=== PATIENT | female | born 1980 | race Caucasian/White ===

== ENCOUNTER → 2017-08-08 18:30 | Emergency (ER) | payer MEDICAID, OTHER ==
[~2017-08-08 18:30] MED LIST: Ibuprofen TAB* 400 MG PO ONE; traMADol TAB* 50 MG PO ONE
--- NOTE | 2017-08-08 19:41 | RAD ---
INDICATION: Chest pain COMPARISON: None TECHNIQUE: An AP portable view obtained at 1931 hours is submitted. FINDINGS: Bones/Soft Tissues: There are no acute bony findings. Cardiomediastinal: The cardiomediastinal silhouette is normal. Lungs: There are no infiltrates. Pleura: There are no pleural effusions. Other: None IMPRESSION: NO ACTIVE DISEASE.
[2017-08-08 20:04] LABS: Hematocrit 44 % (35-47); Hemoglobin 15.2 g/dl (12.0-16.0); Mean Corpuscular HGB Conc 34 g/dl (31-36); Mean Corpuscular Hemoglobin 30 pg (27-31); Mean Corpuscular Volume 87 fL (80-97); Mean Platelet Volume 8 um3 (7.4-10.4); Red Blood Count 5.06 10^6/ul (4.0-5.4); Red Cell Distribution Width 13 % (10.5-15)
[2017-08-08 20:23] LABS: Troponin I 0.01 ng/mL (<0.04)
[2017-08-08 20:32] LABS: ALT 21 U/L (7-52); AST 22 U/L (13-39); Albumin 4.3 g/dL (3.2-5.2); Alkaline Phosphatase 66 U/L (34-104); Anion Gap 9 mmol/L (2-11); BUN/Creatinine Ratio 19.4 (8-20); Blood Urea Nitrogen 14 mg/dL (6-24); CO2 Carbon Dioxide 24 mmol/L (22-32); Calcium 9.3 mg/dL (8.6-10.3); Chloride 103 mmol/L (101-111); EGFR African American 116.6 (>60); EGFR Non-African American 90.7 (>60); Globulin 3.4 g/dL (2-4); Glucose 82 mg/dL (70-100); Potassium 3.7 mmol/L (3.5-5.0); Sodium 136 mmol/L (133-145); Total Protein 7.7 g/dL (6.4-8.9)
[2017-08-08 20:51] LABS: T4 6.77 mcg/mL (6.09-12.23)
[2017-08-08 20:55] LABS: TSH (Thyroid Stimulating Horm) 3.29 mcIU/mL (0.34-5.60)
[2017-08-08 21:37] LABS: Urine Bacteria Absent (Absent); Urine Bilirubin Negative (Negative); Urine Glucose Negative (Negative); Urine Nitrite Negative (Negative)
[2017-08-09 00:52] VITALS: BP 132/82
--- NOTE | 2017-08-09 05:24 | ED ---
Tyron Galo Gabriel, scribed for Marcin Brenner on 08/08/17 at 1927 . HPI Chest Pain - HPI Summary HPI Summary: This patient is a 37 year old F presenting to [facility] with a chief complaint of CP since 10 days ago. The patient rates the pain 6/10 in severity and describes it as constant and radiating from the left side of her chest up into her neck. Symptoms aggravated by inspiration and movement. Patient reports nausea, nonproductive cough, and dizziness. Patient denies LE pain. - History of Current Complaint Chief Complaint: EDChestPainROMI Time Seen by Provider: 08/08/17 19:21 Hx Obtained From: Patient Hx Last Menstrual Period: 06/22/15 Onset/Duration: Started Days Ago - 10, Still Present Timing: Constant Pain Intensity: 6 Pain Scale Used: 0-10 Numeric Chest Pain Radiates: Yes Chest Pain Radiates To:: Neck Character: Other: - inspiration and movement Alleviating Factor(s): Other: Associated Signs and Symptoms: Positive: Negative - LE pain, Dizziness, Nonproductive Cough, Other: - nausea - Allergy/Home Medications Allergies/Adverse Reactions: Allergies Allergy/AdvReac Type Severity Reaction Status Date / Time Fluconazole [From Diflucan] Allergy Intermediate skin Verified 06/25/15 16:06 Penicillins Allergy Intermediate Hives Verified 06/25/15 16:06 PMH/Surg Hx/FS Hx/Imm Hx Previously Healthy: No Endocrine/Hematology History: Denies: Hx Diabetes Cardiovascular History: Reports: Hx Hypercholesterolemia Denies: Hx Hypertension History: Reports: Other Problems/Disorders - Poly cystic ovaries - Cancer History Hx Chemotherapy: No Hx Radiation Therapy: No - Surgical History Surgery Procedure, Year, and Place: Right ovarian cyst removed. Right carpal tunnel Infectious Disease History: No Infectious Disease History: Denies: Hx Clostridium Difficile, Traveled Outside the [place] in Last 30 Days - Family History Known Family History: Positive: Diabetes - brother type II, Other - breast cancer Negative: Cardiac Disease, Hypertension - Social History Alcohol Use: Weekly Alcohol Amount: 2-3 of wine Substance Use Type: Reports: Marijuana Smoking Status (MU): Current Some Day Smoker Type: Cigarettes Amount Used/How Often: 1 pack per week Length of Time of Smoking/Using Tobacco: 22 Have You Smoked in the Last Year: Yes Review of Systems Positive: Chest Pain Positive: Cough Positive: Nausea Musculoskeletal: Negative - LE pain Neurological: Negative - dizziness All Other Systems Reviewed And Are Negative: Yes Physical Exam - Summary Physical Exam Summary: Appearance: Well appearing, no pain distress Skin: warm, dry, reflects adequate perfusion Head/face: normal Eyes: EOMI, YOLA ENT: normal Neck: supple, non-tender Respiratory: CTA, breath sounds present Cardiovascular: RRR, pulses symmetrical Abdomen: non-tender, soft Bowel: present Musculoskeletal: strength/ROM intact, Patient has tenderness of her chest left. Neuro: normal, sensory motor intact, A&Ox3 Triage Information Reviewed: Yes Vital Signs On Initial Exam: Initial Vitals Temp Pulse Resp BP Pulse Ox 98.2 F 86 18 147/93 100 08/08/17 18:33 08/08/17 18:33 08/08/17 18:33 08/08/17 18:33 08/08/17 18:33 Vital Signs Reviewed: Yes Diagnostics - Vital Signs Vital Signs Temp Pulse Resp BP Pulse Ox 08/08/17 18:33 98.2 F 86 18 147/93 100 - Laboratory Lab Results: Lab Results 08/08/17 08/08/17 08/08/17 Range/Units 19:53 19:53 19:53 WBC 10.0 (3.5-10.8) 10^3/ul RBC 5.06 (4.0-5.4) 10^6/ul Hgb 15.2 (12.0-16.0) g/dl Hct 44 (35-47) % MCV 87 (80-97) fL MCH 30 (27-31) pg MCHC 34 (31-36) g/dl RDW 13 (10.5-15) % Plt Count 302 (150-450) 10^3/ul MPV 8 (7.4-10.4) um3 Neut % (Auto) 71.2 (38-83) % Lymph % (Auto) 20.4 L (25-47) % [place] % (Auto) 6.1 (1-9) % Eos % (Auto) 1.7 (0-6) % Baso % (Auto) 0.6 (0-2) % Absolute Neuts (auto) 7.1 (1.5-7.7) 10^3/ul Absolute Lymphs (auto) 2.0 (1.0-4.8) 10^3/ul Absolute Monos (auto) 0.6 (0-0.8) 10^3/ul Absolute Eos (auto) 0.2 (0-0.6) 10^3/ul Absolute Basos (auto) 0.1 (0-0.2) 10^3/ul Absolute Nucleated RBC 0.01 10^3/ul Nucleated RBC % 0.1 INR (Anticoag Therapy) 0.79 L (0.89-1.11) D-Dimer, Quantitative < 200 (Less Than 230) ng/mL Sodium 136 (133-145) mmol/L Potassium 3.7 (3.5-5.0) mmol/L Chloride 103 (101-111) mmol/L Carbon Dioxide 24 (22-32) mmol/L Anion Gap 9 (2-11) mmol/L BUN 14 (6-24) mg/dL Creatinine 0.72 (0.51-0.95) mg/dL Est GFR ( Amer) 116.6 (>60) Est GFR (Non-Af Amer) 90.7 (>60) BUN/Creatinine Ratio 19.4 (8-20) Glucose 82 (70-100) mg/dL Lactic Acid (0.5-2.0) mmol/L Calcium 9.3 (8.6-10.3) mg/dL Magnesium 2.0 (1.9-2.7) mg/dL Total Bilirubin 0.30 (0.2-1.0) mg/dL AST 22 (13-39) U/L ALT 21 (7-52) U/L Alkaline Phosphatase 66 (34-104) U/L CK-MB (CK-2) 1.5 (0.6-6.3) ng/mL Troponin I 0.01 (<0.04) ng/mL Total Protein 7.7 (6.4-8.9) g/dL Albumin 4.3 (3.2-5.2) g/dL Globulin 3.4 (2-4) g/dL Albumin/Globulin Ratio 1.3 (1-3) TSH 3.29 (0.34-5.60) mcIU/mL Thyroxine (T4) 6.77 (6.09-12.23) mcg/mL Beta HCG, Quant < 0.60 mIU/mL Urine Color Urine Appearance Urine pH (5-9) Ur Specific [place] (1.010-1.030) Urine Protein (Negative) Urine Ketones (Negative) Urine Blood (Negative) Urine Nitrate (Negative) Urine Bilirubin (Negative) Urine Urobilinogen (Negative) Ur Leukocyte Esterase (Negative) Urine WBC (Auto) (Absent) Urine RBC (Auto) (Absent) Ur Squamous Epith Cells (Absent) Urine Bacteria (Absent) Urine Glucose (Negative) 08/08/17 08/08/17 08/08/17 Range/Units 19:53 21:15 22:29 WBC (3.5-10.8) 10^3/ul RBC (4.0-5.4) 10^6/ul Hgb (12.0-16.0) g/dl Hct (35-47) % MCV (80-97) fL MCH (27-31) pg MCHC (31-36) g/dl RDW (10.5-15) % Plt Count (150-450) 10^3/ul MPV (7.4-10.4) um3 Neut % (Auto) (38-83) % Lymph % (Auto) (25-47) % [place] % (Auto) (1-9) % Eos % (Auto) (0-6) % Baso % (Auto) (0-2) % Absolute Neuts (auto) (1.5-7.7) 10^3/ul Absolute Lymphs (auto) (1.0-4.8) 10^3/ul Absolute Monos (auto) (0-0.8) 10^3/ul Absolute Eos (auto) (0-0.6) 10^3/ul Absolute Basos (auto) (0-0.2) 10^3/ul Absolute Nucleated RBC 10^3/ul Nucleated RBC % INR (Anticoag Therapy) (0.89-1.11) D-Dimer, Quantitative (Less Than 230) ng/mL Sodium (133-145) mmol/L Potassium (3.5-5.0) mmol/L Chloride (101-111) mmol/L Carbon Dioxide (22-32) mmol/L Anion Gap (2-11) mmol/L BUN (6-24) mg/dL Creatinine (0.51-0.95) mg/dL Est GFR ( Amer) (>60) Est GFR (Non-Af Amer) (>60) BUN/Creatinine Ratio (8-20) Glucose (70-100) mg/dL Lactic Acid 2.0 (0.5-2.0) mmol/L Calcium (8.6-10.3) mg/dL Magnesium (1.9-2.7) mg/dL Total Bilirubin (0.2-1.0) mg/dL AST (13-39) U/L ALT (7-52) U/L Alkaline Phosphatase (34-104) U/L CK-MB (CK-2) (0.6-6.3) ng/mL Troponin I 0.01 (<0.04) ng/mL Total Protein (6.4-8.9) g/dL Albumin (3.2-5.2) g/dL Globulin (2-4) g/dL Albumin/Globulin Ratio (1-3) TSH (0.34-5.60) mcIU/mL Thyroxine (T4) (6.09-12.23) mcg/mL Beta HCG, Quant mIU/mL Urine Color Yellow Urine Appearance Clear Urine pH 5.0 (5-9) Ur Specific [place] 1.018 (1.010-1.030) Urine Protein Negative (Negative) Urine Ketones Negative (Negative) Urine Blood 2+ H (Negative) Urine Nitrate Negative (Negative) Urine Bilirubin Negative (Negative) Urine Urobilinogen Negative (Negative) Ur Leukocyte Esterase Negative (Negative) Urine WBC (Auto) Trace(0-5/hpf) (Absent) Urine RBC (Auto) 1+(3-5/hpf) H (Absent) Ur Squamous Epith Cells Present H (Absent) Urine Bacteria Absent (Absent) Urine Glucose Negative (Negative) Result Diagrams: 08/08/17 19:53 08/08/17 19:53 Lab Statement: Any lab studies that have been ordered have been reviewed, and results considered in the medical decision making process. - Radiology CXR Radiology Interpretation Completed By: Radiologist - NO ACTIVE DISEASE. ED physician has reviewed this radiology report and agrees. - EKG 18:41 Cardiac Rate: NL EKG Rhythm: Sinus Rhythm - NSR at 81 BPM EKG Interpretation: No acute changes Re-Evaluation - Re-Evaluation First Eval Re-Evaluation Time: 21:35 Change: Unchanged - Dicussed patients labs with her and recommended a second round of toponin. Chest Pain Course/Dx - Course Assessment/Plan: This patient is a 37 year old F presenting to [facility] with a chief complaint of CP since 10 days ago. An EKG reveals NSR at 81 BPM CXR reveals, per radiologist, NO ACTIVE DISEASE. Blood and urine were collected with no significant abnormalities. In the ED course the patient was given Tramadol HCL and Ibuprofen. Patient will be discharged with prescription for Tramadol and Ibuprofen and diagnoses of atypical chest pain and costochondritis. Patient came in with chest pain and tenderness over her chest it is most probable due to a musculoskeletal problem. Patient will follow up from Dr. Singh (PCP) in 3 days. The patient is agreeable with this plan. - Chest Pain Differential Diagnosis/HQI/PQRI: Acute MT, ACS, Chest Wall, Lower Respiratory Infection, Pulmonary Embolism - Diagnoses Provider Diagnoses: Atypical chest pain, Costochondritis Discharge - Discharge Plan Condition: Stable Disposition: HOME Prescriptions: Ibuprofen TAB* [Motrin TAB* 600 MG] 600 mg PO Q8H PRN #20 tab MDD 3 PRN Reason: Pain Tramadol HCl [Ultram] 50 mg PO TID #9 tab MDD 3 Patient Education Materials: Ibuprofen (By mouth), Tramadol (By mouth), Chest Pain (ED), Costochondritis (ED) Referrals: Daniella Camargo MD [Primary Care Provider] - Additional Instructions: RETURN TO THE EMERGENCY DEPARTMENT FOR CHANGING OR WORSENING SYMPTOMS. The documentation as recorded by the Tyron alatorre Gabriel accurately reflects the service I personally performed and the decisions made by , Marcin Brenner.
== END | disposition home or self-care (01) ==
LOC: ED 18:30
DX: R07.89 Other chest pain (principal); M94.0 Chondrocostal junction syndrome [Tietze]; R42 Dizziness and giddiness; R05 Cough; R11.0 Nausea; Z72.0 Tobacco use
CPT/HCPCS: 36415; 71010; 80053; 81003; 81015; 82553; 83605; 83735; 84436; 84443; 84484; 84702; 85025; 85379; 85610; 93005; 99282; A9270-GY

== ENCOUNTER 2018-07-26 10:04 | Inpatient (IN) | payer OTHER ==
[~2018-07-26 10:04] MED LIST changes: +Buffered Lidocaine 0.9% SYRIN* 5 ML/SYR SYRINGE INTRADERM ONE; +Dexamethasone TAB* 4 MG PO ONE; +DiMENhydriNATE IV* 50 MG/ML VIAL IV PUSH PRN; +Famotidine IV* 10 MG/ML 2 ML (20 mg) IV ONE; -Ibuprofen TAB* 400 MG PO ONE; +Morphine VIAL* 4 MG/ML VIAL (1 ml vial) IV PRN; +Naloxone* 0.4 MG/ML 1 ML VIAL IV PRN; +Ondansetron TAB* 4 MG PO ONE; +PROCHLORPERAZINE INJ 5 MG/ML 2 ML VIAL IV PRN; +Scopolamine 1.5 mg* PATCH TRANSDERM ONE; -traMADol TAB* 50 MG PO ONE
[2018-07-26] MEDS ORDERED: Clindamycin 900 MG/D5W BAG(*) 900 MG/50 ML BAG IVPB ONE (10:24)
[2018-07-26] MEDS ORDERED: Dexamethasone TAB* 4 MG ONE (10:24)
[2018-07-26] MEDS ORDERED: Famotidine IV* 10 MG/ML 2 ML (20 mg) ONE (10:24)
[2018-07-26] MEDS ORDERED: Ondansetron ODT TAB* 4 MG ONE (10:24)
[2018-07-26] MEDS ORDERED: Scopolamine 1.5 mg* PATCH ONE (10:24)
[2018-07-26] MEDS ORDERED: Heparin VIAL(*) 5000 UNITS/ML VIAL (FIVE THOUSAND) ONE (10:25)
[2018-07-26] MEDS ORDERED: Ciprofloxacin 400MG IVPREMIX(* 400 MG/200 ML BAG ONE (10:25)
[2018-07-26] MEDS ORDERED: fentaNYL* 50 MCG/ML 5 ML VIAL (250 MCG VIAL) ONE (11:17)
[2018-07-26] MEDS ORDERED: Midazolam* 1 MG/ML 5 ML VIAL (5 MG) ONE (11:17)
[2018-07-26] MEDS ORDERED: Atracurium* 10 MG/ML 10 ML VIAL ONE (11:17)
[2018-07-26] MEDS ORDERED: KETAMINE HCL* 50 MG/ML 10 ML VIAL ONE (11:17)
[2018-07-26] MEDS ORDERED: Morphine VIAL* 10 MG/ML 1 ML VIAL ONE (13:35)
[2018-07-26] MEDS ORDERED: PROCHLORPERAZINE INJ 5 MG/ML 2 ML VIAL ONE (13:36)
[2018-07-26] MEDS ORDERED: Propofol* 10 MG/ML 20 ML BTL IV PUSH ONE (13:37)
[2018-07-26] MEDS ORDERED: EPHEDrine (Pressors)* 50 MG/ML VIAL ONE (13:37)
[2018-07-26] MEDS ORDERED: Glycopyrrolate IV* 0.2 MG/ML 1 ML VIAL ONE (13:37)
[2018-07-26] MEDS ORDERED: Labetalol IV* 5 MG/ML 20 ML VIAL ONE (14:07)
[2018-07-26] MEDS ORDERED: Acetaminophen ADULT LIQ* 650 MG/20.3 ML UDC PO PRN (14:24)
[2018-07-26] MEDS ORDERED: diPHENhydraMINE IV* 50 MG/ML 1 ml VIAL (BENADRYL) SLOW PUSH PRN (14:24)
--- NOTE | 2018-07-26 14:24 | OP ---
Operative Report - Blank - Operative Report Date of Operation: 07/26/18 Note: Brief Operative Note Preop Dx: Morbid Obesity Postop Dx: Same Procedure: Laparoscopic Sleeve Gastrectomy Anesthesia: GET Surgeon: Dr. Tristan Christianson Head Sugar Reprocess Operator: Kris Garcia Fluids: 2.0L EBL: 25 ml Specimen: Portion of stomach Drains: None Findings: dictated
[2018-07-26] MEDS ORDERED: fentaNYL* 50 MCG/ML 2 ML VIAL (100 MCG VIAL) ONE (14:41)
[2018-07-26] MEDS: fentaNYL* 50 MCG/ML 2 ML VIAL (100 MCG VIAL) IV PRN ×3 (14:42→15:56)
[2018-07-26] MEDS ORDERED: DiMENhydriNATE IV* 50 MG/ML VIAL ONE (15:26)
[2018-07-26] MEDS ORDERED: Morphine VIAL* 4 MG/ML VIAL (1 ml vial) IV ONE (15:58)
[2018-07-26] MEDS ORDERED: HYDROmorphone INJ1* 1 MG/ML SYRINGE ONE (16:59)
[2018-07-26] MEDS ORDERED: Ondansetron INJ* 2 MG/ML VIAL ONE (17:00)
[2018-07-26] MEDS: Ketorolac INJ* 30 MG/ML 1 ML VIAL IV PRN (20:32)
[2018-07-26] MEDS: Famotidine IV* 10 MG/ML 2 ML (20 mg) IV SLOW PU SCH (20:32)
[2018-07-26] MEDS: Ondansetron INJ* 2 MG/ML VIAL IV PRN (23:54)
[2018-07-26] MEDS: HYDROmorphone INJ1* 1 MG/ML SYRINGE IV PRN (23:54)
[2018-07-27] MEDS: Ketorolac INJ* 30 MG/ML 1 ML VIAL IV PRN ×2 (03:59→20:21)
[2018-07-27] MEDS: HYDROmorphone INJ1* 1 MG/ML SYRINGE IV PRN ×3 (03:59→13:02)
[2018-07-27] MEDS: Heparin VIAL(*) 5000 UNITS/ML VIAL (FIVE THOUSAND) SUBCUT SCH ×3 (05:57→22:39)
[2018-07-27] MEDS: Ondansetron INJ* 2 MG/ML VIAL IV PRN ×3 (05:57→20:14)
[2018-07-27] MEDS: Famotidine IV* 10 MG/ML 2 ML (20 mg) IV SLOW PU SCH ×2 (08:14→20:21)
--- NOTE | 2018-07-27 09:02 | PN ---
Progress Note - Progress Note Date of Service: 07/27/18 SOAP: Subjective: Pt seen and examined. abdo pain. some nausea Objective: Temp Pulse Resp BP Pulse Ox 98.4 F 59 14 115/67 98 07/27/18 07:38 07/27/18 07:38 07/27/18 07:38 07/27/18 07:38 07/27/18 07:38 Intake & Output 07/26/18 07/27/18 07/27/18 22:59 06:59 14:59 Intake Total 0 1965 Output Total 1100 2550 300 Balance -1100 -585 -300 a and ox3, nad lungs clear abdo: soft/ obese/ incisional tenderness dressing intact no calf tenderness UGI images reviewed Assessment: POD1 sleeve Plan: bariatric diet pain control d/c planning
[2018-07-27] MEDS: HYDROcodone/ACET. 7.5/325 LIQ* 15 ML UDC PO PRN ×3 (09:11→22:37)
--- NOTE | 2018-07-27 09:25 | OP ---
CC: Daniella Camargo MD; [facility].* DATE OF OPERATION: 07/26/18 - ROOM #351 DATE OF : 78. SURGEON: Tristan Christianson MD. DRAG OUT WORKER: CODY Garcia. ANESTHESIOLOGIST: Dr. Valverde. ANESTHESIA: General anesthesia. PRE-OP DIAGNOSIS: Clinically severe obesity. POST-OP DIAGNOSIS: Clinically severe obesity. OPERATIVE PROCEDURE: Laparoscopic sleeve gastrectomy. ESTIMATED BLOOD LOSS: Minimal. FLUIDS: Minimal crystalloid fluid given. SPECIMEN: Portion of stomach. DRAINS: None. DESCRIPTION OF PROCEDURE: The patient was identified in the preoperative area. Consent was signed. She was marked, brought to the operating room, placed on the operating table in supine position. Preoperative antibiotics were given. Sequential devices were placed on bilateral lower extremities. General anesthesia was induced. The patient's abdomen was prepped and draped in a standard surgical fashion. A time-out was performed. Folds of the umbilicus were elevated anteriorly and a Veress needle was inserted into the abdominal cavity, which was then allowed to insufflate to a pressure of 15 mmHg. The patient tolerated the insufflation well. [place] between the xiphoid and the umbilicus, a 12-mm trocar was inserted just left of midline. Laparoscope was inserted through this and there was no evidence of injury from the trocar insertion or from the Veress needle. Additional trocars were then placed in the following position: Two 5 mm in the left upper quadrant and a 12 mm in the right upper quadrant. Review of the abdomen showed enlarged liver. This was retracted anteriorly and to the right with a Agatha retractor that was inserted through a subxiphoid incision. Next, the gastroesophageal fat pad was dissected off the anterior aspect of the stomach and extended towards the angle of His. We freed the stomach off of the crura on the left and there was no identifiable hiatal hernia. Next, we made a retrogastric tunnel at approximately 6 cm proximal to the pylorus on the greater curvature and took the vasculature right up to our previously dissected area at the angle of His. Posterior attachments were similarly taken until the stomach could be entirely rotated on its axis. Next, the sleeve stomach was created using 60 mm purple JOS stapling devices with reinforcement strips in the standard fashion. Five staplers were used in all. We did this over a 40-Arabic bougie. The bougie was removed and hemostasis was certainly achieved at the staple line. The staple line did not show any cord screwing, twisting. It appeared completely intact. Next, the resected portion of the stomach was then placed in an endoscopic retrieval bag. We placed an Endoloop at the distal aspect of it to help with removal. At this point, we noted that there was bleeding along the liver on the inferior aspect of the left lateral lobe. It appeared that an instrument had scarped along the side of it. There was no puncture and the bleeding promptly stopped. We did suction his blood out. It did not persist. However, I utilized a portion of Surgicel and gauze to hold pressure. Next, the stomach was removed through the right upper quadrant port site after dilating this. It was removed and passed off as specimen. We then reinserted the port and reviewed the abdomen that was with bleeding. Stomach sleeve appeared intact. The area of the liver that was concerned showed no evidence of bleeding and we left the Surgicel intact and removed the gauze. Next, the Agatha retractor was removed. We had shifted this to ensure that this was not helping stop the bleeding at this small area of the liver and it was only loosely placed on the liver, but now it had been removed and again no bleeding was encountered. Next, the right upper quadrant port site was closed with an Endo Close device using a 0-Vicryl suture. We then allowed the abdomen to collapse. Trocars were removed under direct vision and all skin incisions were reapproximated with 4-0 Monocryl subcuticular sutures followed by Steri-Strips and sterile dressing. The patient tolerated the procedure well and was woken up in the OR, and transferred to the PACU in stable condition. [id number]/[facility] #: [id number] [facility] SYSTEMDonna
--- NOTE | 2018-07-27 12:09 | PN ---
Progress Note - Progress Note Date of Service: 07/27/18 SOAP: Subjective: This is 38-y-o female who underwent Laparoscopic Sleeve Gastrectomy on 07/26/2018. Pt notes the pain was 8/10 in severity last night and 5-6/10 today. She states sitting and shifting make her pain worse. She is tolerating clear liquids well. Denies chest pain, fever, chills SOB, nausea & vomitting and calf tenderness. Denies passing of flatus and bowel movement. Objective: [ Temp Pulse Resp BP Pulse Ox 98.1 F 53 12 135/76 100 07/27/18 11:33 07/27/18 11:33 07/27/18 11:33 07/27/18 11:33 07/27/18 11:33 Intake & Output 07/26/18 07/27/18 07/27/18 22:59 06:59 14:59 Intake Total 0 1965 Output Total 1100 2550 600 Balance -1100 -585 -600 Intake: IV Fluids 1965 LR 1965 Oral 0 0 Output: Urine 1100 2550 600 Other: Estimated Void Large # Bowel Movements 0 # Voids 1 General: Well appearing, alert & oriented, no signs of acute distress. Lungs: CTA, no wheezes, rohchi, or rales CV: Regular rate and rhythm, normal S1, S2, no S3, S4. No murmurs, rubs or gallops noted Abdomen: Soft, non-distended, tenderness in around the lap incision sites, dressing intact and dry without discharge. Positive bowel sounds Assessment: POD #1 Laparoscopic Sleeve Gastrectomy Plan: Doing well, encouraged incentive spirometry and ambulation Bariatic diet Pain control Discharge planning as per Dr. Christianson note.
[2018-07-27] MEDS: D5W 1/2 NS KCl 20 Meq 1000 ML* 1,000 ML IV SCH ×2 (14:31→22:37)
[2018-07-27] MEDS ORDERED: Metoclopramide IV* 5 MG/ML 2 ML VIAL ONE (16:36)
[2018-07-28] MEDS: D5W 1/2 NS KCl 20 Meq 1000 ML* 1,000 ML IV SCH (06:25)
[2018-07-28] MEDS: Heparin VIAL(*) 5000 UNITS/ML VIAL (FIVE THOUSAND) SUBCUT SCH ×2 (06:33→14:20)
[2018-07-28] MEDS: HYDROcodone/ACET. 7.5/325 LIQ* 15 ML UDC PO PRN ×3 (06:34→18:01)
[2018-07-28] MEDS: Ondansetron INJ* 2 MG/ML VIAL IV PRN (06:35)
[2018-07-28] MEDS: Famotidine IV* 10 MG/ML 2 ML (20 mg) IV SLOW PU SCH (08:54)
[2018-07-28] MEDS: Ketorolac INJ* 30 MG/ML 1 ML VIAL IV PRN (14:35)
[2018-07-28 17:38] VITALS: BP 120/65
[2018-07-29] MEDS ORDERED: Scopolamine PATCH Remove* 1 NOTE MISC PATCH OFF ONE (06:00)
--- NOTE | 2018-07-29 10:35 | DS ---
CC: Dr. Daniella Camargo; [facility]. DISCHARGE SUMMARY: DATE OF ADMISSION: DATE OF DISCHARGE: 07/28/18 HISTORY: Ms. Acosta is 38-year-old female with a clinically severe obesity, who was admitted on same day of surgery and underwent a laparoscopic sleeve gastrectomy. Please see operative report for detai ls. In the postoperative period, she was transferred to the PACU and onto the short stay surgical unit. Postoperative day #1, the patient underwent an upper GI study, and was started on liquid diet. She t olerated very minimal amount fluids and was maintained on IV fluids as well as. She was given pain m edications and was observed in the overnight. By postoperative day #2, she showed some improvement, continued to have some upper abdominal pain as well as reflux type pain. She was maintained on a H2 tracey while hospitalized with the plan of discharging her on a proton pump inhibitor. On day of discharge, physical exam was performed, she was afebrile. Vital signs were stable. Lungs clear to auscultation bilaterally. Abdomen soft, obese, positive incisional tenderness without rebou nd. Dressings removed. No erythema. No ecchymosis. Steri-Strips in place. Extremities within norm al limits. PLAN: Postoperative day #2 sleeve gastrectomy. Plan to discharge home. She has followup appointmen t in our office. She will resume her preoperative medications and we will add omeprazole 40 mg daily to her regimen. [id number]/[facility] #: [id number]
== END 2018-07-28 18:00 | disposition home or self-care (01) | DRG 403 ==
LOC: AA 10:04 → SSU 16:49
PROVIDERS: ADMIT Surgery; ATTEND Surgery
PROC: 0DB64Z3 Excision of Stomach, Percutaneous Endoscopic Approach, Vertical (ICD-10-PCS; principal; 2018-07-26 11:15)
DX: E66.01 Morbid (severe) obesity due to excess calories (principal); E73.9 Lactose intolerance, unspecified; F41.9 Anxiety disorder, unspecified; F32.9 Major depressive disorder, single episode, unspecified; F17.210 Nicotine dependence, cigarettes, uncomplicated; G47.33 Obstructive sleep apnea (adult) (pediatric); E78.5 Hyperlipidemia, unspecified; E28.2 Polycystic ovarian syndrome; N80.9 Endometriosis, unspecified; Z82.49 Family history of ischemic heart disease and other diseases of the circulatory system; Z68.38 Body mass index [BMI] 38.0-38.9, adult; Z88.0 Allergy status to penicillin; Z88.8 Allergy status to other drugs, medicaments and biological substances; Z83.3 Family history of diabetes mellitus; Z81.8 Family history of other mental and behavioral disorders; Z80.9 Family history of malignant neoplasm, unspecified
CPT/HCPCS: 74246; 81025; 88307; A9270-GY; J0744; J0780; J1170; J1240; J1644; J1885; J2250; J2270; J2405; J2704; J2765; J3010; J8540

== ENCOUNTER 2018-09-18 11:00 | Emergency (ER) | payer BC ==
--- NOTE | 2018-09-18 11:10 | UC ---
Lower Extremity/Ankle HPI - HPI Summary HPI Summary: 38 yo female presents with RIGHT foot pain. She tells me that last night she was carrying a laptop and lost of her footing on the stairs. Fell onto her buttocks and twisted her right toes on the step. Since that time has had pain in her right foot around 1st MTP. She is able to ambulate without assistance, but does have a significant limp. Denies numbness or tingling. Did not hit her head or have LOC. Denies pain elsewhere on body. - History of Current Complaint Stated Complaint: R FOOT INJURY Time Seen by Provider: 09/18/18 11:10 Hx Obtained From: Patient Hx Last Menstrual Period: 06/22/15 Onset/Duration: Sudden Onset Severity Initially: Moderate Severity Currently: Severe Pain Intensity: 10 Pain Scale Used: 0-10 Numeric Aggravating Factor(s): Standing, Ambulation Alleviating Factor(s): Rest Able to Bear Weight: Yes - Allergies/Home Medications Allergies/Adverse Reactions: Allergies Allergy/AdvReac Type Severity Reaction Status Date / Time fluconazole Allergy Severe Blisters Verified 09/18/18 11:06 lactose Allergy Severe GI Upset Verified 09/18/18 11:06 Penicillins Allergy Severe Hives Verified 09/18/18 11:06 aspirin Allergy See Comment Verified 09/18/18 11:06 ibuprofen Allergy See Comment Verified 09/18/18 11:21 naproxen Allergy See Comment Verified 09/18/18 11:21 PMH/Surg Hx/FS Hx/Imm Hx Psychological History: Anxiety, Depression - Surgical History Surgical History: Yes Surgery Procedure, Year, and Place: Right ovarian cyst removed. Right carpal tunnel. lap sleeve- 07/26/18 - Family History Known Family History: Positive: Diabetes - brother type II, Other - breast cancer Negative: Cardiac Disease, Hypertension - Social History Occupation: Employed Full-time Lives: With Family Alcohol Use: None Alcohol Amount: 2-3 of wine Substance Use Type: Marijuana Substance Use Comment - Amount & Last Used: daily- 1 hit in the evening Smoking Status (MU): Former Smoker Type: Cigarettes Amount Used/How Often: 1 pack per week Length of Time of Smoking/Using Tobacco: 22 Have You Smoked in the Last Year: Yes When Did the Patient Quit Smoking/Using Tobacco: 05/13/18 - Immunization History Most Recent Influenza Vaccination: 07/07/18 Most Recent Pneumonia Vaccination: unknown Review of Systems All Other Systems Reviewed And Are Negative: Yes Constitutional: Positive: Negative Skin: Positive: Negative Respiratory: Positive: Negative Cardiovascular: Positive: Negative Neurovascular: Positive: Negative Musculoskeletal: Positive: Other: - Right foot pain Neurological: Positive: Negative Psychological: Positive: Negative Physical Exam - Summary Physical Exam Summary: GENERAL: NAD. WDWN. No pain distress. SKIN: No rashes, sores, lesions, or open wounds. CHEST: No accessory muscle use. Breathing comfortably and in no distress. CV: Pulses intact PT and DP. Cap refill <2seconds MSK: RIGHT FOOT: TTP over 1st MTP with overlying mild edema and ecchymosis. Unable to move toe without significant pain. NTTP ankle or MTs. NEURO: Alert. Sensations intact and symmetric B/L LEs PSYCH: Age appropriate behavior. Triage Information Reviewed: Yes Vital Signs: Vital Signs: Temp Pulse Resp BP Pulse Ox 98 F 71 20 132/89 100 09/18/18 11:08 09/18/18 11:08 09/18/18 11:08 09/18/18 11:08 09/18/18 11:08 Vital Signs Reviewed: Yes Lower Extremity Course/Dx - Course Course Of Treatment: XR: IMPRESSION: #. Grossly nondisplaced diaphyseal through distal metaphyseal fracture of the first. proximal phalanx. Pt placed in a CAM boot and advised to RICE and f/u with Orthopedics. She is asking for pain medication for bedtime, given her bariatric surgery status - she cannot take NSAIDs and tylenol is not helping, therefore will rx for norco for use at bedtime. iSTOP Reference #: [id number]. - Differential Dx/Diagnosis Provider Diagnosis: Toe fracture, right Discharge - Sign-Out/Discharge Documenting (check all that apply): Patient Departure - - All imaging exams completed and their final reports reviewed: Yes - Discharge Plan Condition: Stable Disposition: HOME Prescriptions: HYDROcodone/ACETAMIN 5-325 MG* [[place] 5-325 TAB*] 1 tab PO BEDTIME PRN #4 tab MDD 1 PRN Reason: Pain Patient Education Materials: Toe Fracture (ED) Referrals: Daniella Camargo MD [Primary Care Provider] - Zacarias Mcneill MD [Medical Doctor] - As Soon As Possible Additional Instructions: If you develop a fever, shortness of breath, chest pain, new or worsening symptoms - please call your PCP or go to the ED. 1) Use the walking boot as much as possible 2) Please call Orthopedics at the number below to schedule a follow up appointment as soon as possible - Billing Disposition and Condition Condition: STABLE Disposition: Home
[2018-09-18 11:17] VITALS: BP 132/89
== END 2018-09-18 11:50 | disposition home or self-care (01) ==
LOC: UCEAST 11:00
DX: S92.534A Nondisplaced fracture of distal phalanx of right lesser toe(s), initial encounter for closed fracture (principal); Z88.1 Allergy status to other antibiotic agents; Z88.0 Allergy status to penicillin; Z88.6 Allergy status to analgesic agent; Z91.011 Allergy to milk products; Z87.891 Personal history of nicotine dependence; W10.9XXA Fall (on) (from) unspecified stairs and steps, initial encounter; Y92.9 Unspecified place or not applicable
CPT/HCPCS: 99213; G0463

== ENCOUNTER 2018-12-13 11:28 | Emergency (ER) | payer BC ==
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
[2018-12-13 12:23] VITALS: BP 122/77
[2018-12-13 12:38] LABS: Urine Appearance Cloudy; Urine Bacteria Absent (Absent); Urine Bilirubin Negative (Negative); Urine Blood 1+ (Negative); Urine Color Amber; Urine Glucose Negative (Negative); Urine Ketones 2+ (Negative); Urine Nitrite Negative (Negative); Urine Protein 2+(100 mg/dL) (Negative); Urine Red Blood Cell 3+(>10/hpf) (Absent); Urine Specific Gravity 1.029 (1.010-1.030); Urine Squamous Epithelial Cell Present (Absent); Urine Urobilinogen Negative (Negative); Urine White Blood Cell Trace(0-5/hpf) (Absent)
[2018-12-13 12:46] LABS: Barbiturates Urine Screen None Detected (None Detect); Benzodiazepine Urine Screen Presumptive Positive (None Detect); Urine Cannabinoids Screen Presumptive Positive (None Detect)
== END 2018-12-13 12:22 | disposition home or self-care (01) ==
LOC: ED 11:28
DX: T50.903A Poisoning by unspecified drugs, medicaments and biological substances, assault, initial encounter (principal); Y92.511 Restaurant or cafe as the place of occurrence of the external cause
CPT/HCPCS: 36415; 80307; 80320; 81003; 81015; 87086; 99282; G0480

== ENCOUNTER 2019-04-28 12:13 | Emergency (ER) | payer BC, OTHER ==
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
[2019-04-28] MEDS ORDERED: Lidocaine 1% MPF ** 5 ML VIAL IM ONE (14:45)
[2019-04-28] MEDS ORDERED: cefTRIAXone VIAL(*) 250 MG VIAL IM ONE (14:45)
[2019-04-28] MEDS ORDERED: Azithromycin TAB* 250 MG PO ONE (14:45)
[2019-04-28] MEDS ORDERED: Acetaminophen TAB* 325 MG PO ONE (14:46)
[2019-04-28] MEDS ORDERED: Ondansetron ODT TAB* 4 MG PO ONE (15:25)
[2019-04-28 16:01] VITALS: BP 130/80
== END 2019-04-28 15:45 | disposition home or self-care (01) ==
LOC: ED 12:13
DX: T76.21XA Adult sexual abuse, suspected, initial encounter (principal); E78.00 Pure hypercholesterolemia, unspecified; F41.9 Anxiety disorder, unspecified; F32.9 Major depressive disorder, single episode, unspecified; Z87.891 Personal history of nicotine dependence
CPT/HCPCS: 96372; 99283; A9270-GY; J0696

== ENCOUNTER 2019-06-09 20:53 | Emergency (ER) | payer BC ==
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
[2019-06-09 21:06] VITALS: BP 103/72
[2019-06-09] MEDS ORDERED: Lidocaine 2% VISCOUS* 15 ML UDC PO ONE (21:10)
[2019-06-09] MEDS ORDERED: Al Hydrox/Mg Hydrox/Simet LIQ* 30 ML UDC PO ONE (21:10)
[2019-06-09] MEDS ORDERED: Famotidine IV* 10 MG/ML 2 ML (20 mg) IV SLOW PU ONE (21:11)
[2019-06-09] MEDS ORDERED: NS 0.9% 1000 ML** 1,000 ML IV ONE (21:11)
[2019-06-09] MEDS ORDERED: Thiamine IV 100 MG, Folic Acid IV* 1 MG, Multiple Vitamin IV ADULT* 10 ML in NS 0.9% 10... IV ONE (21:12)
[2019-06-09 21:28] LABS: ABS Eosinophils 0.1 10^3/ul (0-0.6); ABS Lymphocytes 1.5 10^3/ul (1.0-4.8); ABS Monocytes 0.5 10^3/ul (0-0.8); ABS Neutrophils 4.9 10^3/ul (1.5-7.7); Eosinophil % 1.7 %; Hematocrit 43 % (35-47); Hemoglobin 14.9 g/dL (12.0-16.0); Lymphocyte % 20.8 %; Mean Corpuscular HGB Conc 35 g/dL (31-36); Mean Corpuscular Hemoglobin 32 pg (27-31); Mean Corpuscular Volume 91 fL (80-97); Mean Platelet Volume 7.8 fL (7.4-10.4); Nucleated Red Blood Cells % 0.1; Platelet Count 246 10^3/uL (150-450); Red Blood Count 4.71 10^6 /uL (3.70-4.87); Red Cell Distribution Width 13 % (10-15)
[2019-06-09 21:44] LABS: ALT 18 U/L (7-52); AST 19 U/L (13-39); Albumin 4.3 g/dL (3.2-5.2); Albumin/Globulin Ratio 1.6 (1-3); Alkaline Phosphatase 80 U/L (34-104); Anion Gap 6 mmol/L (2-11); BUN/Creatinine Ratio 13.1 (8-20); Blood Urea Nitrogen 11 mg/dL (6-24); CO2 Carbon Dioxide 27 mmol/L (22-32); Calcium 9.1 mg/dL (8.6-10.3); Chloride 106 mmol/L (101-111); EGFR African American 90.9 (>60); EGFR Non-African American 75.1 (>60); Globulin 2.7 g/dL (2-4); Glucose 83 mg/dL (70-100); Magnesium 2.1 mg/dL (1.9-2.7); Potassium 3.3 mmol/L (3.5-5.0); Sodium 139 mmol/L (135-145)
[2019-06-09 21:46] LABS: Troponin I 0.03 ng/mL (<0.04)
[2019-06-09 21:50] LABS: HCG Pregnancy < 0.60 mIU/mL
[2019-06-09] MEDS ORDERED: NS 0.9% 1000 ML** 1,000 ML ONE (22:02)
== END 2019-06-09 23:24 | disposition home or self-care (01) ==
LOC: ED 20:53
DX: R11.10 Vomiting, unspecified (principal); R55 Syncope and collapse; Z98.84 Bariatric surgery status; E78.00 Pure hypercholesterolemia, unspecified; F41.9 Anxiety disorder, unspecified; F32.9 Major depressive disorder, single episode, unspecified; Z87.891 Personal history of nicotine dependence; Z88.6 Allergy status to analgesic agent; Z88.0 Allergy status to penicillin; Z88.8 Allergy status to other drugs, medicaments and biological substances
CPT/HCPCS: 36415; 71046; 80053; 83605; 83735; 84425; 84484; 84702; 85025; 85379; 93005; 96374; 99283; A9270-GY; J3411

== ENCOUNTER 2020-01-01 17:33 | Emergency (ER) | payer BC, OTHER ==
[2020-01-01] MEDS ORDERED: NS 0.9% 1000 ML** 1,000 ML IV ONE (17:48)
--- NOTE | 2020-01-01 17:52 | ED ---
HPI Chest Pain - HPI Summary HPI Summary: 39 year old female presents with worsening chest pain for the past couple days. She has been sick for the past week and half. She was tested for covid a week ago which was negative. was sick but he has been feeling better. States that her cough has gotten worse. Cough is productive. She admits shortness of breath. Pain hurts worst when she takes deep breath. Pain is sharp in nature. Pain radiates around her entire chest. She denies any current pain or swelling in her calf muscles. No family history of blood clots or cardiac disease. She denies any abdominal pain. She admits to sinus congestion. Has had low-grade fevers. She feels achy all over. She admits to a headache. Has history of gastric sleeve and sleep apnea. She is a smoker. - History of Current Complaint Time Seen by Provider: 01/01/20 17:38 Hx Last Menstrual Period: 06/22/15 - Additional Pertinent History Primary Care Physician: EFRAIN - Allergy/Home Medications Allergies/Adverse Reactions: Allergies Allergy/AdvReac Type Severity Reaction Status Date / Time fluconazole Allergy Severe Blisters Verified 04/28/19 12:17 lactose Allergy Severe GI Upset Verified 04/28/19 12:17 Penicillins Allergy Severe Hives Verified 04/28/19 12:17 aspirin Allergy See Comment Verified 04/28/19 12:17 ibuprofen Allergy See Comment Verified 04/28/19 12:17 naproxen Allergy See Comment Verified 04/28/19 12:17 Home Medications: Home Medications FLUoxetine CAP* [PROzac CAP*] 40 mg PO QAM 01/01/20 [History Confirmed 01/01/20] PMH/Surg Hx/FS Hx/Imm Hx Endocrine/Hematology History: Denies: Hx Diabetes Cardiovascular History: Reports: Hx Hypercholesterolemia Denies: Hx Hypertension, Other Cardiovascular Problems/Disorders Respiratory History: Reports: Hx Sleep Apnea Denies: Hx Asthma, Hx Chronic Obstructive Pulmonary Disease (COPD), Other Respiratory Problems/Disorders GI History: Reports: Other GI Disorders - Lactose intolerant/allergy History: Reports: Hx Kidney Infection - in early 20's, Hx Kidney Stones - in early 20's, Other Problems/Disorders - Poly cystic ovaries Musculoskeletal History: Reports: Hx Arthritis - thumbs, cervical spine, Other Musculoskeletal History - PT 3x weekly for mild neck pain/limited range of motion Sensory History: Denies: Hx Contacts or Glasses, Hx Hearing Aid Opthamlomology History: Denies: Hx Contacts or Glasses Neurological History: Reports: Other Neuro Impairments/Disorders - History of vertigo, not in 2 years Psychiatric History: Reports: Hx Anxiety - has panic attacks, Hx Depression, Hx Inpatient Treatment - after divorce-2009 Denies: Other Psychiatric Issues/Disorders - Cancer History Hx Chemotherapy: No Hx Radiation Therapy: No - Surgical History Surgery Procedure, Year, and Place: Right ovarian cyst removed. Right carpal tunnel. lap sleeve- 07/26/18 Hx Anesthesia Reactions: No Infectious Disease History: Denies: Hx Clostridium Difficile, History Other Infectious Disease - Family History Known Family History: Positive: Diabetes - brother type II, Other - breast cancer, Non-Contributory Negative: Cardiac Disease, Hypertension - Social History Alcohol Use: None Alcohol Amount: 2-3 of wine Hx Substance Use: Yes Substance Use Type: Reports: Marijuana Substance Use Comment - Amount & Last Used: daily- 1 hit in the evening Hx Tobacco Use: Yes Smoking Status (MU): Former Smoker Type: Cigarettes Amount Used/How Often: 1 pack per week Length of Time of Smoking/Using Tobacco: 22 Have You Smoked in the Last Year: Yes Review of Systems Positive: Fever Positive: Chest Pain Positive: Shortness Of Breath, Cough Positive: Headache All Other Systems Reviewed And Are Negative: Yes Physical Exam Triage Information Reviewed: Yes Vital Signs Reviewed: Yes Appearance: Positive: Well-Appearing Skin: Positive: Warm, Dry Head/Face: Positive: Normal Head/Face Inspection Eyes: Positive: Normal, Conjunctiva Clear ENT: Positive: Pharynx normal Respiratory/Lung Sounds: Positive: Clear to Auscultation, Breath Sounds Present Cardiovascular: Positive: Normal, RRR Abdomen Description: Positive: Nontender, Soft Bowel Sounds: Positive: Present Musculoskeletal: Positive: Normal Neurological: Positive: Normal Psychiatric: Positive: Normal Procedures - Sedation Patient Received Moderate/Deep Sedation with Procedure: No Diagnostics - Laboratory Result Diagrams: 01/01/20 17:47 01/01/20 17:47 Lab Statement: Any lab studies that have been ordered have been reviewed, and results considered in the medical decision making process. - Radiology chest Radiology Interpretation Completed By: ED Physician Summary of Radiographic Findings: no active disease - EKG No standard instances Cardiac Rate: NL EKG Rhythm: Sinus Rhythm EKG Comparison: No Significant Change Summary of EKG Findings: sinus arrhythmia Re-Evaluation - Re-Evaluation First Eval Re-Evaluation Time: 19:50 Comment: discussed results with patients Second Eval Re-Evaluation Time: 22:00 Comment: discussed second troponin results Chest Pain Course/Dx - Course Course Of Treatment: 39 year old female presents with worsening chest pain for the past couple days. She has been sick for the past week and half. She was tested for covid a week ago which was negative. was sick but he has been feeling better. States that her cough has gotten worse. Cough is productive. She admits shortness of breath. Pain hurts worst when she takes deep breath. Pain is sharp in nature. Pain radiates around her entire chest. She denies any current pain or swelling in her calf muscles. No family history of blood clots or cardiac disease. She denies any abdominal pain. She admits to sinus congestion. Has had low-grade fevers. She feels achy all over. She admits to a headache. Has history of gastric sleeve and sleep apnea. She is a smoker. On exam lungs clear to auscultation. Heart regular rhythm. Afebrile. ekg sinus arrhythmia. wbc normal. d-dimer neg. heart score 1. troponin .02x2. crp normal. chest xray shows no active disease. discussed likely viral syndrome. will treat supporatively. told to continue to self isolate. did not retest for covid as was negative even though is a rate of false neg but was also negative too. patient understand and agrees with plan. - Chest Pain Differential Diagnosis/HQI/PQRI: Angina, Chest Wall, Lower Respiratory Infection - Diagnoses Provider Diagnoses: Atypical chest pain, Cough - Critical Care Time Critical Care Statement: Critical care time is provided exclusive of any time spent performing procedures. Discharge ED - Sign-Out/Discharge Documenting (check all that apply): Patient Departure - Discharge Plan Condition: Good Disposition: HOME Patient Education Materials: Acute Bronchitis (ED) Referrals: Daniella Camargo MD [Primary Care Provider] - Additional Instructions: take tyenlol every 6 hours as needed for pain use saline as needed for nasal congestion use humidifier in room for cough continue to self isolate until symptoms resolve Follow up with primary Return to ED if develop any new or worsening symptoms - Billing Disposition and Condition Condition: GOOD Disposition: Home - Attestation Statements Provider Attestation: I was available for consultation for this patient. I did not evaluate the patient or participate in any medical decision making or disposition decisions unless I am specifically named in the chart as having consulted on the patient. If I have consulted on the patient, please see my own ED note on the patient encounter. Moy Landrum MD
[2020-01-01 18:50] LABS: ABS Eosinophils 0.1 10^3/ul (0-0.6); ABS Lymphocytes 1.1 10^3/ul (1.0-4.8); ABS Monocytes 0.4 10^3/ul (0-0.8); ABS Neutrophils 3.6 10^3/ul (1.5-7.7); Eosinophil % 2.5 %; Hematocrit 40 % (35-47); Hemoglobin 14.1 g/dL (12.0-16.0); Lymphocyte % 20.5 %; Mean Corpuscular HGB Conc 35 g/dL (31-36); Mean Corpuscular Hemoglobin 31 pg (27-31); Mean Corpuscular Volume 89 fL (80-97); Mean Platelet Volume 7.8 fL (7.4-10.4); Nucleated Red Blood Cells % 0.1; Platelet Count 191 10^3/uL (150-450); Red Blood Count 4.52 10^6 /uL (3.70-4.87); Red Cell Distribution Width 12 % (10-15); White Blood Count 5.3 10^3/uL (3.5-10.8)
[2020-01-01 19:08] LABS: Troponin I 0.02 ng/mL (<0.03)
[2020-01-01 19:10] LABS: ALT 16 U/L (7-52); Albumin 4.1 g/dL (3.2-5.2); Albumin/Globulin Ratio 1.5 (1-3); Alkaline Phosphatase 74 U/L (34-104); Blood Urea Nitrogen 17 mg/dL (6-24); C Reactive Protein 1.48 mg/L (<8.01); CO2 Carbon Dioxide 28 mmol/L (22-32); Calcium 9.1 mg/dL (8.6-10.3); Chloride 101 mmol/L (101-111); EGFR African American 89.6 (>60); EGFR Non-African American 74.1 (>60); Globulin 2.8 g/dL (2-4); Glucose 84 mg/dL (70-100); Sodium 136 mmol/L (135-145); Total Protein 6.9 g/dL (6.4-8.9)
[2020-01-01 19:12] LABS: HCG Pregnancy < 0.60 mIU/mL
[2020-01-01 19:21] LABS: Anion Gap 7 mmol/L (2-11)
[2020-01-01 19:27] LABS: AST 21 U/L (13-39)
[2020-01-01 22:15] VITALS: BP 148/86
== END 2020-01-01 22:14 | disposition home or self-care (01) ==
LOC: ED 17:33
DX: R07.89 Other chest pain (principal); R05 Cough; R06.02 Shortness of breath; Z88.0 Allergy status to penicillin; Z88.8 Allergy status to other drugs, medicaments and biological substances; F17.210 Nicotine dependence, cigarettes, uncomplicated; Z98.84 Bariatric surgery status; R50.9 Fever, unspecified; E78.00 Pure hypercholesterolemia, unspecified; G47.30 Sleep apnea, unspecified; F41.9 Anxiety disorder, unspecified
CPT/HCPCS: 36415; 71045; 80053; 83605; 83880; 84484; 84702; 85025; 85379; 86140; 93005; 96360; 96361; 99284

== ENCOUNTER 2021-06-19 23:42 | Inpatient (IN) ==
[2021-06-20] MEDS ORDERED: Lactated Ringers 1000 ml BAG 1,000 ML IV ONE (02:57)
[2021-06-20] MEDS ORDERED: Ondansetron 4 mg VIAL 2 MG/ML 2 ml VIAL IV ONE (02:57)
[2021-06-20] MEDS ORDERED: Thiamine 100 MG/ML 2 ml VIAL (200 mg) ONE (03:00)
[2021-06-20] MEDS ORDERED: NS 0.9% 1000 ml BAG 1,000 ML ONE (03:00)
[2021-06-20 03:37] LABS: ABS Lymphocytes 1.1 10^3/ul (1.0-4.8); ABS Monocytes 0.4 10^3/ul (0-0.8); Eosinophil % 0.2 %; Hematocrit 42 % (35-47); Hemoglobin 14.5 g/dL (12.0-16.0); Lymphocyte % 14.4 %; Mean Corpuscular HGB Conc 35 g/dL (31-36); Mean Corpuscular Hemoglobin 31 pg (27-31); Mean Corpuscular Volume 90 fL (80-97); Mean Platelet Volume 7.4 fL (7.4-10.4); Platelet Count 254 10^3/uL (150-450); Red Blood Count 4.63 10^6 /uL (3.70-4.87); Red Cell Distribution Width 12 % (10-15); White Blood Count 7.5 10^3/uL (3.5-10.8)
[2021-06-20 03:53] LABS: ALT 12 U/L (7-52); AST 16 U/L (13-39); Albumin 4.1 g/dL (3.2-5.2); Albumin/Globulin Ratio 1.4 (1-3); Alkaline Phosphatase 68 U/L (35-149); Anion Gap 7 mmol/L (2-11); Blood Urea Nitrogen 10 mg/dL (6-24); CO2 Carbon Dioxide 27 mmol/L (22-32); Calcium 9.1 mg/dL (8.6-10.3); Chloride 102 mmol/L (101-111); Globulin 2.9 g/dL (2-4); Glucose 99 mg/dL (70-100); Lipase 18 U/L (11.0-82.0); Potassium 3.7 mmol/L (3.5-5.0); Sodium 136 mmol/L (135-145)
[2021-06-20] MEDS ORDERED: Thiamine 100 MG/ML 2 ml VIAL 100 MG, Folic Acid IV 1 MG, Multiple Vitamin IV ADULT 10 M... IV ONE (04:00)
[2021-06-20 04:27] LABS: Troponin I 0.62 ng/mL (<0.03)
[2021-06-20 06:24] LABS: Rapid COVID-19 Molecular Undetected (Undetected)
[2021-06-20 06:34] LABS: Cholesterol 226 mg/dL; HDL Cholesterol 66.9 mg/dL; LDL Cholesterol 144 mg/dL; Triglycerides 75 mg/dL
[2021-06-20] MEDS: Enoxaparin 80 MG/0.8 ML SYR SUBCUT SCH ×2 (06:49→20:18)
[2021-06-20 07:19] LABS: Troponin I 1.15 ng/mL (<0.03)
[2021-06-20] MEDS: VORTIOXETINE 10 MG PO SCH (08:44)
[2021-06-20 09:58] LABS: Urine Appearance Clear; Urine Bilirubin Negative (Negative); Urine Blood Negative (Negative); Urine Color Yellow; Urine Glucose Negative (Negative); Urine Ketones Negative (Negative); Urine Nitrite Negative (Negative); Urine Protein Negative (Negative); Urine Specific Gravity 1.012 (1.002-1.030); Urine Urobilinogen Negative (Negative)
[2021-06-20 11:04] LABS: Urine Benzodiazepine Screen None Detected (None Detect); Urine Cannabinoids Screen Presumptive Positive (None Detect); Urine Opiates Screen None Detected (None Detect)
[2021-06-20] MEDS ORDERED: Morphine 2 MG/ML SYRINGE IV PRN (14:19)
[2021-06-20 15:03] LABS: Troponin I 0.88 ng/mL (<0.03)
[2021-06-21] MEDS ORDERED: Perflutren Lipid Microsphere 3 ML VIAL ONE (07:51)
[2021-06-21 09:20] LABS: Hematocrit 44 % (35-47); Hemoglobin 15.3 g/dL (12.0-16.0); Mean Corpuscular HGB Conc 35 g/dL (31-36); Mean Corpuscular Hemoglobin 31 pg (27-31); Mean Corpuscular Volume 90 fL (80-97); Platelet Count 228 10^3/uL (150-450); Red Cell Distribution Width 12 % (10-15); White Blood Count 5.8 10^3/uL (3.5-10.8)
[2021-06-21 09:45] LABS: Anion Gap 8 mmol/L (2-11); Blood Urea Nitrogen 9 mg/dL (6-24); C Reactive Protein 15.97 mg/L (<8.01); CO2 Carbon Dioxide 27 mmol/L (22-32); Calcium 9.4 mg/dL (8.6-10.3); Chloride 102 mmol/L (101-111); Glucose 87 mg/dL (70-100); Magnesium 1.9 mg/dL (1.9-2.7); Potassium 3.8 mmol/L (3.5-5.0); Sodium 137 mmol/L (135-145)
[2021-06-21] MEDS: Enoxaparin 80 MG/0.8 ML SYR SUBCUT SCH ×2 (09:46→21:00)
[2021-06-21] MEDS: VORTIOXETINE 10 MG PO SCH (09:48)
[2021-06-21] MEDS ORDERED: Ondansetron ODT 4 mg TAB 4 MG TAB SL PRN (11:33)
[2021-06-21] MEDS ORDERED: Magnesium Hydroxide LIQ 30 ML UDC PO PRN (12:16)
[2021-06-21 13:13] LABS: Troponin I 0.43 ng/mL (<0.03)
[2021-06-21] MEDS ORDERED: Nicotine GUM 2MG FRUIT FLAVOR PO PRN (15:30)
[2021-06-21] MEDS ORDERED: Nitroglycerin 0.6 mg TAB SL PRN ×2 (16:06→16:08)
[2021-06-21 17:08] LABS: Troponin I 0.37 ng/mL (<0.03)
[2021-06-22] MEDS ORDERED: NS 0.9% 1000 ml BAG 1,000 ML IV SCH ×2 (04:00→09:45)
[2021-06-22 06:23] LABS: Calcium 9.1 mg/dL (8.6-10.3); Magnesium 1.9 mg/dL (1.9-2.7)
[2021-06-22 06:33] LABS: ABS Eosinophils 0.1 10^3/ul (0-0.6); ABS Lymphocytes 1.8 10^3/ul (1.0-4.8); ABS Monocytes 0.5 10^3/ul (0-0.8); ABS Neutrophils 2.3 10^3/ul (1.5-7.7); Eosinophil % 1.6 %; Hematocrit 43 % (35-47); Hemoglobin 14.8 g/dL (12.0-16.0); Mean Corpuscular HGB Conc 34 g/dL (31-36); Mean Corpuscular Hemoglobin 32 pg (27-31); Mean Corpuscular Volume 94 fL (80-97); Mean Platelet Volume 8.4 fL (7.4-10.4); Nucleated Red Blood Cells % 0.2; Platelet Count 227 10^3/uL (150-450); Red Blood Count 4.59 10^6 /uL (3.70-4.87); Red Cell Distribution Width 12 % (10-15); White Blood Count 4.7 10^3/uL (3.5-10.8)
[2021-06-22 07:00] LABS: Potassium 3.8 mmol/L (3.5-5.0)
[2021-06-22] MEDS ORDERED: Midazolam 5 mg/5 ml VIAL 1 mg/ml 5 ml VIAL (5 mg) ONE (08:26)
[2021-06-22] MEDS ORDERED: VERAPAMIL 2.5 MG/ML 2 ML VIAL ** 5 mg/2 ml ONE (08:27)
[2021-06-22] MEDS ORDERED: fentaNYL 100 mcg/2 ml 50 MCG/ML VIAL ONE (08:27)
[2021-06-22] MEDS ORDERED: Lidocaine 1% VIAL 10 MG/ML VIAL ONE (08:27)
[2021-06-22] MEDS ORDERED: Heparin 1,000 UNIT/ML 10 ml (10,000 UNITS) CATHLAB/DIALYSIS ONE (08:27)
[2021-06-22] MEDS ORDERED: nitroGLYCERIN DRIP 25,000 MCG/250 ML BTL ONE (08:28)
[2021-06-22] MEDS ORDERED: Heparin 2 UNITS/ML IVPREMIX 2,000 UNIT/1,000 ML BAG IV ONE (08:29)
[2021-06-22] MEDS ORDERED: Iohexol 350 (CONTRAST) 200 ML MDV IV ONE (08:44)
[2021-06-22] MEDS ORDERED: Heparin 2 UNITS/ML IVPREMIX 1,000 UNIT/500 ML BAG IV ONE (09:00)
[2021-06-22] MEDS: Enoxaparin 80 MG/0.8 ML SYR SUBCUT SCH (12:50)
[2021-06-22] MEDS: VORTIOXETINE 10 MG PO SCH ×2 (12:50→18:56)
[2021-06-22 13:10] LABS: TSH Ultra Thyroid Stim Horm 2.4 mcIU/mL (0.34-5.60)
[2021-06-22 13:12] LABS: Free T4 1.1 ng/dL (0.61-1.12)
[2021-06-22 13:54] LABS: ABS Eosinophils 0.1 10^3/ul (0-0.6); ABS Lymphocytes 1.2 10^3/ul (1.0-4.8); ABS Monocytes 0.4 10^3/ul (0-0.8); ABS Neutrophils 2.6 10^3/ul (1.5-7.7); Eosinophil % 1.7 %; Hematocrit 41 % (35-47); Hemoglobin 14.3 g/dL (12.0-16.0); Lymphocyte % 27.9 %; Mean Corpuscular HGB Conc 35 g/dL (31-36); Mean Corpuscular Hemoglobin 32 pg (27-31); Mean Corpuscular Volume 90 fL (80-97); Mean Platelet Volume 7.9 fL (7.4-10.4); Platelet Count 240 10^3/uL (150-450); Red Blood Count 4.55 10^6 /uL (3.70-4.87); Red Cell Distribution Width 12 % (10-15); White Blood Count 4.4 10^3/uL (3.5-10.8)
[2021-06-22 14:20] LABS: Calcium 8.9 mg/dL (8.6-10.3); Potassium 3.6 mmol/L (3.5-5.0)
[2021-06-23 06:48] LABS: Anion Gap 5 mmol/L (2-11); Blood Urea Nitrogen 13 mg/dL (6-24); CO2 Carbon Dioxide 28 mmol/L (22-32); Calcium 8.6 mg/dL (8.6-10.3); Chloride 108 mmol/L (101-111); Glucose 92 mg/dL (70-100); Magnesium 1.8 mg/dL (1.9-2.7); Potassium 3.5 mmol/L (3.5-5.0); Sodium 141 mmol/L (135-145)
[2021-06-23] MEDS ORDERED: Magnesium Sulfate IV 3 GM in NS 0.9% 100 ml BAG 100 ML IVPB ONE (08:30)
[2021-06-23] MEDS: VORTIOXETINE 10 MG PO SCH (08:40)
[2021-06-23 12:39] LABS: % Iron Saturation 16 % (15-55); Iron 49 ug/dL (50-212); Total Iron Binding Capacity 302 mcg/dL (250-450); Transferrin 216 mg/dL (203-362); Unsaturated Iron Binding < 287 ug/dL
[2021-06-23 12:59] LABS: Ferritin 83.8 ng/mL (11-307)
[2021-06-23 15:41] VITALS: BP 114/73
[2021-06-24 16:19] LABS: Selenium 174 ng/mL (70-150)
[2021-06-24 21:51] LABS: Anaplasma phagocytophilum Negative (Negative); B. miyamotoi PCR, B Negative (Negative); Babesia divergens/MO-1 Negative (Negative); Babesia ducani Negative (Negative); Ehrlichia chaffeensis Negative (Negative); Ehrlichia ewingii/canis Negative (Negative); Ehrlichia muris eauclairensis Negative (Negative)
== END 2021-06-23 17:59 | disposition home or self-care (01) | DRG 192 ==
LOC: MEDTELE 23:42 → ED 23:42 → SUATTDRO 06-20 10:23 → MEDTELE 06-20 10:28
PROVIDERS: ADMIT Internal Medicine; ATTEND Internal Medicine